=== PATIENT | female | born 1990 | race Caucasian/White ===

== ENCOUNTER 2020-01-26 12:29 | Emergency (ER) | payer BC, SELFPAY ==
[2020-01-26 12:38] VITALS: BP 120/81; PULSE 75; RESP 16; TEMP 36.3; O2SAT 98
--- NOTE | 2020-01-26 12:52 | ED.ABDPAIN ---
HPI - Abdominal Pain General Chief Complaint: Abdominal Pain Stated Complaint: abdominal pain Time Seen by Provider: 01/26/20 12:55 Source: patient and RN notes reviewed Mode of arrival: ambulatory Limitations: no limitations History of Present Illness HPI narrative: 29 year old female who presents to [facility] [facility] with complaints of left flank pain since 2 AM with no radiation of her pain to mid or lower left abdomen. Patient states that she did have one episode of diarrhea but denies any nausea or vomiting. Patient states no burning with urination, no frequency or urgency of urination, denies any vaginal drainage or possible exposure to STD's. Patient states that her menses ended yesterday and has not had any noted spotting or cramping today. Patient was seen previously in the ER for abdominal pain and was noted to have left ovarian cyst on sonogram in September of 2018. Patient states pain is different area this time, denies any known personal history of kidney stones. MD elicited complaint: flank pain (left) Pertinent past history: other (Left ovarian cyst) Onset (ago): hour(s) (Since 2 AM) Location: L flank Severity: mild Pain scale (0-10): 2 Quality: aching Radiation: L flank Migration to: no migration Exacerbating factors: nothing Relieving factors: nothing Associated symptoms: diarrhea (X1 episode) Treatments prior to arrival: NSAIDs Related Data Date of Last Menstrual Period: 01/20/20 Patient : No Allergies Allergy/AdvReac Type Severity Reaction Status Date / Time No Known Allergies Allergy Verified 01/26/20 12:40 Review of Systems Review of Systems: Narrative: CONSTITUTIONAL: Denies fever, chills, or sweats. EYES: Denies visual changes, redness, or discharge. ENT: Denies rhinorrhea, congestion, sore throat, or otalgia. CARDIOVASCULAR: Denies chest pain, palpitations, or edema. RESPIRATORY: Denies cough or dyspnea. GASTROINTESTINAL: Denies abdominal pain, nausea, vomiting, on episode of diarrhea. GENITOURINARY: Denies dysuria or hematuria. SKIN: Denies rash or itching. MUSCULOSKELETAL:Positive for left flank pain, no joint pain, or myalgia. NEUROLOGIC: Denies headache, numbness, or weakness. PSYCHIATRIC: positive history of anxiety or depression. All systems reviewed & are unremarkable except as noted in HPI and below PMFSH Past Medical History Medical History Anxiety with depression Social History Social History (Updated 01/28/20 @ 16:28 by Abril Adams NP) Smoking status: Former smoker Smoking end date: 07/11/15 Alcohol intake: current Living arrangements: with family Gender identity (if verbalized by the patient): Female Comments At time of signature, agree with nursing past medical, surgical, social history. There is no relevant family history pertinent to the presenting complaint Exam Narrative: Exam Narrative: GENERAL: Well-appearing, well-nourished, and in no acute distress. HEAD: Normocephalic, atraumatic. EYES: PERRLA and EOMI. ENT: Nares clear, no rhinorrhea or epistaxis. Mucous membranes moist. NECK: Supple.no lymphadenopathy CHEST: Clear to auscultation. No respiratory distress. HEART: Regular rate and rhythm. No murmur heard. Normal peripheral pulses. ABDOMEN: Soft, nontender, nondistended, normal active bowel sounds, left flank pain with no increase in pain on palpation or any radiation or migration of pain, denies any nausea or vomiting or further diarrhea episodes but once this am. EXTREMITIES: Normal range of motion. No edema. SKIN: Warm, dry, no rash. NEURO: No focal deficits. Alert and oriented x3. Course Vital Signs Vital signs: Vital Signs Temperature 36.3 C L 01/26/20 12:38 Pulse Rate 75 01/26/20 12:38 Respiratory Rate 16 01/26/20 12:38 Blood Pressure 120/81 01/26/20 12:38 Pulse Oximetry 98 01/26/20 12:38 Temperature 36.3 C L 01/26/20 12:38 Pulse Rate 75 01/26/20 12:38 Respiratory R
== END 2020-01-26 13:14 | disposition home or self-care (01) ==
PROVIDERS: Emergency Provider Registered Nurse; PCP Family Medicine
DX: R10.9 Unspecified abdominal pain (principal); Z87.891 Personal history of nicotine dependence; F41.9 Anxiety disorder, unspecified; F32.9 Major depressive disorder, single episode, unspecified
CPT/HCPCS: 81003; 99213; G0463

== ENCOUNTER 2020-07-13 14:37 | Emergency (ER) | payer BC, SELFPAY ==
--- NOTE | 2020-07-13 14:48 | ED.GENADULT ---
HPI - General Adult General Chief complaint: Headache Stated complaint: headache,dizzy Time Seen by Provider: 07/13/20 14:48 Source: patient Mode of arrival: ambulatory Limitations: no limitations History of Present Illness HPI narrative: 30-year-old female patient presents to the [facility] with complaints of headache and dizziness. Patient states that yesterday when she was getting of the head her and her actually accidentally knocked heads. Patient states it did hurt at the time but denies losing consciousness. Patient states that when she woke up today she felt a little woozy and nauseous. Denies any vision changes. Patient states that she does have a little bit of sensitivity to the light. Patient states she has been feeling a little nauseous today but no vomiting or diarrhea. Patient states she did take aspirin for the headache. Denies any lightheadedness, dizziness. Denies any falling. Denies any confusion Related Data Home Medications Medication Instructions Recorded Confirmed sertraline 100 mg tablet 200 mg PO DAILY tablet 06/27/20 06/27/20 Allergies Allergy/AdvReac Type Severity Reaction Status Date / Time No Known Allergies Allergy Verified 05/26/20 10:12 Review of Systems Review of Systems: Narrative: CONSTITUTIONAL: Denies fever, chills, or sweats. EYES: Denies visual changes, redness, or discharge. ENT: Denies rhinorrhea, congestion, sore throat, or otalgia. CARDIOVASCULAR: Denies chest pain, palpitations, or edema. RESPIRATORY: Denies cough or dyspnea. GASTROINTESTINAL: Denies abdominal pain, positive nausea, denies vomiting, or diarrhea. GENITOURINARY: Denies dysuria or hematuria. SKIN: Denies rash or itching. MUSCULOSKELETAL: Denies back pain, joint pain, or myalgia. NEUROLOGIC: Positive headache, denies numbness, or weakness. PSYCHIATRIC: Denies anxiety or depression. [facility] Past Medical History Medical History (Updated 07/13/20 @ 15:07 by BENNIE Patel) Anxiety with depression Social History Social History Smoking status: Former smoker Smoking end date: 07/11/15 Alcohol intake: current Gender identity (if verbalized by the patient): Female Comments At the time of my signature I agree with nursing past medical history, surgical, social, and family history. There is no relevant family history pertinent to the presenting complaint. Exam Narrative: Exam Narrative: GENERAL: Well-appearing, well-nourished, and in no acute distress. HEAD: Normocephalic, atraumatic. No trigger point for headache. No palpable scalp tenderness or obvious deformity noted. No surface trauma noted. EYES: PERRLA and EOMI. ENT: Nares clear, no rhinorrhea or epistaxis. Mucous membranes moist. NECK: Supple. No lymphadenopathy CHEST: Clear to auscultation. No respiratory distress. HEART: Regular rate and rhythm. No murmur heard. Normal peripheral pulses. ABDOMEN: Soft, nontender, nondistended, normal active bowel sounds. EXTREMITIES: Normal range of motion. No edema. SKIN: Warm, dry, no rash. NEURO: Alert and oriented x4, GCS 15. Cranial nerves II through XII grossly intact. No focal neurological deficits. Normal muscle strength and tone. Normal deep tendon reflexes. Negative Babinski, normal finger to nose coordination he had normal heel to [place]. Speech is clear. Normal gait. Negative Romberg and no pronator drift Course Vital Signs Vital signs: Vital Signs Temperature 36.3 C L 07/13/20 14:50 Pulse Rate 66 07/13/20 14:50 Respiratory Rate 16 07/13/20 14:50 Blood Pressure 115/74 07/13/20 14:50 Pulse Oximetry 98 07/13/20 14:50 Temperature 36.3 C L 07/13/20 14:50 Pulse Rate 66 07/13/20 14:50 Respiratory Rate 16 07/13/20 14:50 Blood Pressure 115/74 07/13/20 14:50 Pulse Oximetry 98 07/13/20 14:50 Vital signs reviewed Medical Decision Making Differential Diagnosis Differential Diagnosis: Differential
[2020-07-13 14:50] VITALS: BP 115/74; PULSE 66; RESP 16; TEMP 36.3; O2SAT 98
== END 2020-07-13 15:20 | disposition home or self-care (01) ==
PROVIDERS: Emergency Provider Nurse Practitioner Family; PCP Nurse Practitioner Family
DX: G44.319 Acute post-traumatic headache, not intractable (principal); Z87.891 Personal history of nicotine dependence; F41.9 Anxiety disorder, unspecified; F32.9 Major depressive disorder, single episode, unspecified
CPT/HCPCS: 99213; G0463